=== PATIENT | male | born 1985 | race Caucasian/White ===

== ENCOUNTER 2016-10-25 09:21 | Emergency (ER) | payer OTHER ==
--- NOTE | 2016-10-25 10:53 | ED ---
Neck Pain - HPI Summary HPI Summary: Patient presents with neck pain that began after sustaining an injury last week. He was seen in this ED and taken out of work, and returns today for re- evalulation for return to work. His symptoms have persisted but he still has pain and stiffness he is managing with heat and Icy/Hot. He denies N/T or lack of function in the upper extremities. - History of Current Complaint Chief Complaint: EDNeckComplaint Stated Complaint: SHOULDER PAIN Time Seen by Provider: 10/25/16 10:13 Hx Obtained From: Patient Onset/Duration Of Injury/Symptoms: Weeks - 1 Timing: Constant Severity Initially: Severe Severity Currently: Moderate Pain Intensity: 5 Location: Discrete At: - left trapezius Character: Aching, Stiff Aggravating Factors: Movement Alleviating Factors: Heat, OTC Meds Associated Signs & Symptoms: Positive: Negative - Allergies/Home Medications Allergies/Adverse Reactions: Allergies Allergy/AdvReac Type Severity Reaction Status Date / Time No Known Allergies Allergy Verified 10/25/16 09:26 PMH/Surg Hx/FS Hx/Imm Hx Previously Healthy: Yes Infectious Disease History: Denies: Traveled Outside the [place] in Last 30 Days - Family History Known Family History: Positive: None - Social History Occupation: Employed Full-time Lives: With Family Alcohol Use: Occasionally Substance Use Type: Reports: None Smoking Status (MU): Light Every Day Tobacco Smoker Cessation Counseling: Patient Advised to Stop Review of Systems Positive: Myalgia All Other Systems Reviewed And Are Negative: Yes Physical Exam Triage Information Reviewed: Yes Vital Signs On Initial Exam: Initial Vitals Temp Pulse Resp BP Pulse Ox 98.2 F 105 18 144/90 100 10/25/16 09:23 10/25/16 09:23 10/25/16 09:23 10/25/16 09:23 10/25/16 09:23 Vital Signs Reviewed: Yes Appearance: Positive: Well-Appearing, Pain Distress, Obese Skin: Positive: Warm, Skin Color Reflects Adequate Perfusion, Dry, Soft Head/Face: Positive: Normal Head/Face Inspection Eyes: Positive: EOMI, KAT, Conjunctiva Clear ENT: Positive: Hearing grossly normal Neck: Positive: Supple, No Lymphadenopathy, Tenderness @ - left trapezius Respiratory/Lung Sounds: Positive: Breath Sounds Present Cardiovascular: Positive: RRR Musculoskeletal: Positive: Strength/ROM Intact - mild discomfort with rotation of neck Neurological: Positive: Sensory/Motor Intact, Alert, Oriented to Person Place, Time, NV Bundle Intact Distally, Normal Gait Psychiatric: Positive: Affect/Mood Appropriate AVPU Assessment: Alert Diagnostics - Vital Signs Vital Signs Temp Pulse Resp BP Pulse Ox 10/25/16 09:23 98.2 F 105 18 144/90 100 - Laboratory Lab Statement: Any lab studies that have been ordered have been reviewed, and results considered in the medical decision making process. Neck Course/Dx - Diagnoses Differential Dx/HQI/PQRI: Positive: Adenitis, Arthritis, Cervical Fracture, Sprain, Strain, Torticollis Provider Diagnoses: Neck muscle strain Discharge - Discharge Plan Condition: Stable Disposition: HOME Forms: *Work Release Referrals: No Primary Care Phys,NOPCP [Primary Care Provider] - Additional Instructions: Follow up as needed.
[2016-10-25 11:04] VITALS: BP 134/85
== END 2016-10-25 11:10 | disposition home or self-care (01) ==
LOC: ED 09:21
DX: M25.512 Pain in left shoulder (principal); S16.1XXA Strain of muscle, fascia and tendon at neck level, initial encounter; X58.XXXA Exposure to other specified factors, initial encounter; Y93.9 Activity, unspecified; Y92.9 Unspecified place or not applicable; Y99.9 Unspecified external cause status; F17.210 Nicotine dependence, cigarettes, uncomplicated
CPT/HCPCS: 99281

== ENCOUNTER 2017-03-02 14:11 | Emergency (ER) | payer MEDICAID, OTHER ==
[2017-03-02 14:32] VITALS: BP 123/66
== END 2017-03-02 16:02 | disposition left against medical advice (07) ==
LOC: ED 14:11
DX: M25.512 Pain in left shoulder (principal); Z53.21 Procedure and treatment not carried out due to patient leaving prior to being seen by health care provider